=== PATIENT | male | born 1985 | race Caucasian/White ===

== ENCOUNTER 2023-01-14 11:39 | Outpatient (CLI) | payer BC ==
[~2023-01-14 11:39] MED LIST: NO HOME MEDS; PROM25TA14 PO
== END 2023-01-14 23:59 | disposition home or self-care (01) ==
LOC: RAD 11:39
PROVIDERS: ATTEND Nurse Practitioner Family
DX: M25.512 Pain in left shoulder (principal)
CPT/HCPCS: 73030